=== PATIENT | male | born 1945 | race Caucasian/White ===

== ENCOUNTER 2024-02-05 10:19 | Outpatient (CLI) | payer MEDICARE, OTHER ==
[~2024-02-05] VITALS: Ht 191.8 cm; Wt 104.8 kg
[2024-02-05 10:41] LABS: TOTAL HEMOGLOBIN 13.9 G/dl (13.5-17.5)
[2024-02-05] MEDS ORDERED: albuterol 2.5 MG/3 ML nebule NEB PRN (11:15)
[2024-02-05] MEDS: albuterol 2.5 MG/3 ML nebule NEB ONE (11:24)
[2024-02-05 11:30] VITALS: PULSE 64; RESP 16; O2SAT 94
[2024-02-05 11:42] VITALS: PULSE 70; RESP 16
== END 2024-02-05 23:59 | disposition home or self-care (01) ==
LOC: RT 10:19
PROVIDERS: ATTEND Internal Medicine Pulmonary Disease
DX: J44.9 Chronic obstructive pulmonary disease, unspecified (principal)
CPT/HCPCS: 85018; 94060; 94727; 94729; 94760; Z7610